=== PATIENT | female | born 1935 | race Caucasian/White ===

== ENCOUNTER 2016-09-05 18:13 | Emergency (ER) | payer MEDICARE ==
[~2016-09-05] VITALS: Ht 165.1 cm; Wt 81.6 kg
[2016-09-05] MEDS ORDERED: POTASSIUM CHLORIDE PO (18:33)
[2016-09-05] MEDS ORDERED: PROCARDIA XL 3030 MG PO (18:34)
[2016-09-05] MEDS ORDERED: MIRALAX17 GM/PACK PO (18:34)
[2016-09-05] MEDS ORDERED: CENTRUM SILVER1 EAC2 PO (18:35)
[2016-09-05] MEDS ORDERED: ASPIRIN ADULT L81 M2 PO (18:35)
[2016-09-05] MEDS ORDERED: THIAMINE 100MG100 MG PO (18:36)
[2016-09-05] MEDS ORDERED: SYNTHROID 0.1M0.1 MG PO (18:37)
[2016-09-05] MEDS ORDERED: FUROSEMIDE 20MG20 MG FT (18:38)
[2016-09-05] MEDS ORDERED: ARIPIPRAZOLE15 MG PO (18:38)
[2016-09-05] MEDS ORDERED: LORAZEPAM0.5 MG/TAB FT (18:39)
[2016-09-05] MEDS ORDERED: LOSARTAN POTASS50 MG PO (18:40)
[2016-09-05] MEDS ORDERED: APRESOLINE 50MG50 MG OR (18:41)
[2016-09-05] MEDS ORDERED: ACETAMINOPHEN500 M3 PO (18:42)
[2016-09-05] MEDS ORDERED: DEPAKOTE 125MG125 MG PO (18:43)
[2016-09-05] MEDS ORDERED: ULTRAM50 MG PO (18:43)
[2016-09-05] MEDS ORDERED: ATIVAN0.5 MG PO (18:44)
[2016-09-05] MEDS ORDERED: PAROXETINE20 MG PO (18:45)
[2016-09-05] MEDS ORDERED: NITROGLYCERIN0.4 M1 SL (18:46)
[2016-09-05] MEDS ORDERED: IPRATROPIUM BROM3 M1 IH (18:47)
[2016-09-05 19:19] LABS: HEMOGLOBIN 11.1 g/dL (12.2-16.2); LYMPH # 2.4 K/mm3 (0.7-4.5); LYMPH % 27.3 % (10-50.0)
[2016-09-05 19:44] LABS: BUN 15 mg/dL (7-18)
--- NOTE | 2016-09-05 19:44 | Emergency Room Report ---
History of Present Illness Time Seen by 1942 Presenting Problem in Triage Pt arrived:Walked Presenting Problem:PT PRESENTS TO ER ALERT AND ORIENTED. PT ALERT AND ORIENTED TO SELF ONLY. [facility] REPORTS THAT PT FELL OUT OF WHEELCHAIR EARLIER TODAY AND THEN COMPLAINED OF CHEST PAIN AND PAIN ALL OVER. 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 N Clinical Suspician of Infection? N Mental Status: 1 - Regular (Normal Baseline) Sepsis Risk:Low Sepsis Risk Have you (or family members/close friends) recently traveled outside the [place]? N If Yes, where/when: Have you had exposure to infectious disease within the past month? N TB? Other? Specify: Source patient, RN notes reviewed, family, EMS, senior living records, old records Exam Limitations clinical condition Comment pt reported to have slipped out of chair at [facility] and now has chest pain and was sent for eval of chest pain - pt has cognitive issues and has inconsistent hx Cardiac Chest Pain Chest pain indicative of cardiac No Timing/Duration this evening Severity moderate ALLERGIES Coded Allergies: No Known Allergies (09/05/16) Home Medications Reported Medications Potassium Chloride (Micro-K 8 Meq. Capsule) 8 MEQ PO DAILY Polyethylene Glycol 3350 (Miralax) 17 GM PO DAILY Nifedipine (Procardia Xl 30MG. Tablet) 30 MG PO DAILY Aspirin 81 MG PO DAILY Folic Acid/Multivit-Min/Lutein (Centrum Silver Chewable Tablet) 1 EACH PO DAILY THIAMINE HCL (Vitamin B-1) 100 MG PO DAILY Levothyroxine Sodium (Synthroid 0.1MG) 0.2 MG PO DAILY Furosemide (Furosemide) 20 MG FT DAILY Aripiprazole 15 MG PO DAILY Lorazepam (Lorazepam 0.5MG) 0.5 MG FT BID Losartan Potassium (Losartan 50MG) 50 MG PO DAILY Hydralazine Hcl (Apresoline 50MG Tab) 25 MG OR TID Acetaminophen (Acetaminophen Extra Strength) 650 MG PO TID Tramadol Hcl (Ultram 50MG) 50 MG PO TID Divalproex Sodium (Depakote Sprinkle) 125 MG PO TID Lorazepam (Ativan 0.5MG) 0.5 MG PO QHS PAROXETINE (Paroxetine HCl) 40 MG PO DAILY Nitroglycerin 0.4 MG SL PRN PRN CHEST PAIN ALBUTEROL-IPRATROPIUM (Iprat-Albut 0.5-3(2.5) MG/3 Ml) 3 ML IH Q6HP PRN BREATHING History Medical History General CAD? No Angina: Yes NC: No Hypertension? No Hyperlipidemia? No CHF? No DVT? No PE? No COPD? No Asthma? No Anemia? No GERD? No Gastric ulcers? No GI Bleed? No Hernia? No Thyroid Problems? No Hypothyroidism? No CVA? No Seizures? No Diabetes? Yes Insulin Dependent: No Insulin Pump: No Home FSBS? No Renal Insuffiency? No End Stage Renal Disease? No UTI? No Stones? No BPH? No GB Disease: No Nephritic Syndrome? No Asplenia? No Hepatitis? No Sickle Cell Disease? No Arthritis? No Migraines? No Cataracts? No Glaucoma? No MRSA? No HIV? No TB? No Anxiety? No Depression? No Cancer? No More? Yes Additional hx: DEMENTIA, ANXIETY, LOW THYROID Immunization Hx DT/Tetanus Unknown Surgical Hx Previous Surgery?Y KNEE (LEFT) Social History Smoking Hx Smoker: Former Smoker Tobacco: Yes Type Cigarettes Alcohol Alcohol: No Drugs none Review of Systems All Other Systems Reviewed and Negative Constitutional denies fever Eyes denies drainage ENT denies: ear pain, epistaxis, throat pain. Respiratory denies cough, denies shortness of breath, denies wheezing Cardiovascular see HPI, chest pain, denies palpitations, denies syncope Gastrointestinal denies abdominal pain, denies diarrhea, denies vomiting Genitourinary denies: dysuria, frequency, hesitancy, hematuria. Musculoskeletal see HPI, denies back pain, joint pain, denies joint swelling, denies neck pain Skin denies rash Psychiatric/Neurological denies headache, denies seizure Physical Exam Vital Signs Vital Signs Date Time Temp Pulse Resp B/P Pulse O2 O2 Flow FiO2 Ox Delivery Rate 09/05 2033 88 20 142/82 96 09/05 1815 98.8 64 16 153/60 99 - WBC >12,000 or <4,000 or 10% bands? 2 or more SIRS Criteria Met? B/P:153/60 MAP:91 Creatinine >2.0? UA output<0.5ml/kg/hr for 2 hrs? Platelet count >100,000? Lactate >2.0mmol/1? INR >1.2 or PTT > than 60 sec? Evidence of Organ Dysfunction? Provider documented clinical suspician of infection? N Sepsis Criteria Count: 0 Sepsis Risk: Low Sepsis Risk General Appearance no apparent distress Eye Exam - bilateral eye PERRL, bilateral eye EOMI Ear, Nose, Throat normal ENT inspection Neck non-tender Respiratory Status No: respiratory distress. Lung Sounds bilateral: lungs clear. Cardiovascular regular rate/rhythm, systolic murmur Peripheral Pulses Pulses normal Yes Gastrointestinal soft Back no vertebral tenderness Extremities pelvis stable, limited range of motion, no clinical changes to pelvis or knees Strength 4 Upper Ext (L), 4 Upper Ext (R), 4 Lower Ext (L), 4 Lower Ext (R) Neurologic alert, client leader II-XII nml as tested, ox 1 Glascow Coma Scale Glascow Coma Scale Response Value EYE response: 4 Spontaneously 4 MOTOR response: 6 OBEYS 6 VERBAL response: 4 Disoriented & Converses 4 Total 14 Reflexes Reflexes normal No Mental status normal mood/affect Skin intact Medical Decision Making LABS/Meds/Orders Pt receiving controlled substance in ED? No Results/Orders Laboratory Tests 09/05/16 1830: Sodium 141, Potassium 3.8, Chloride 107, Carbon Dioxide 28, BUN 15, Creatinine 0.9, Estimated Creat Clear 65, Estimated GFR (MDRD) 60, Glucose 144 H, Calcium 10.2 H, Total Bilirubin 0.3, AST 19, ALT 23, Alkaline Phosphatase 79, Creatine Kinase 37, CK-MB (CK-2) Rel Index 3.5, CK and CKMB Interp 1.3, Troponin I < 0.02 , Total Protein 6.7, Albumin 3.0 L, Globulin 3.7 H, Albumin/Globulin Ratio 0.8 L, WBC 8.9, RBC 3.73 L, Hgb 11.1 L, Hct 34.4 L, MCV 92.2, RDW 14.6, Plt Count 290, MPV 6.7 L, Gran % 65.4, Gran # 5.8, Lymphocytes % 27.3, Monocytes % 4.5, Eosinophils % 2.4, Basophils % 0.3, Lymphocytes # 2.4, Monocytes # 0.4, Eosinophils # 0.2, Basophils # 0.0, PUBS MCHC 32.4, MCH 29.8 Current Medication Orders Sig/Tyrell Start time Last Medication Dose Route Stop Time Status Admin Sodium Chloride 10 ML PRN PRN 09/05 1900 AC IV 09/06 184 Orders Procedure Date/time Status KNEE-3 VIEWS-LT 09/05 185 Active ELECTROCARDIOGRAM REQUEST 09/06 1847 Active CHEST-PORTABLE 09/06 1847 Active IV SALINE LOCK 09/06 1847 Active MOLDER MEAT 09/06 1847 Active CBC WITH AUTO DIFF 09/06 1847 Complete CARDIAC ENZYMES 09/06 1847 Complete CHEM 12 PROFILE 09/06 1847 Complete CM/EKG CM/domestic 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 ST/Twave chgs XRAY/CT/US XRAY/CT/US XRAY chest, knee XR interpretation by reviewed by me Xray Results no fracture seen Departure Departure Time of Disposition 2045 Disposition DC Home or Self Care(routine) Clinical Impression Primary Impression: Chest pain Qualifiers: Chest pain type: unspecified Qualified Code: R07.9 - Chest pain, unspecified Condition STABLE Patient Instructions DI for Atypical Chest Pain Additional Instructions resume meds Discharge Counseling Counseled pt/family regarding diagnosis, test results, follow up needs ED Critical Care Critical Care No at 2048
--- NOTE | 2016-09-05 19:44 | Emergency Room Report ---
History of Present Illness Time Seen by 1942 Presenting Problem in Triage Pt arrived:Walked Presenting Problem:PT PRESENTS TO ER ALERT AND ORIENTED. PT ALERT AND ORIENTED TO SELF ONLY. [facility] REPORTS THAT PT FELL OUT OF WHEELCHAIR EARLIER TODAY AND THEN COMPLAINED OF CHEST PAIN AND PAIN ALL OVER. 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 N Clinical Suspician of Infection? N Mental Status: 1 - Regular (Normal Baseline) Sepsis Risk:Low Sepsis Risk Have you (or family members/close friends) recently traveled outside the [place]? N If Yes, where/when: Have you had exposure to infectious disease within the past month? N TB? Other? Specify: Source patient, RN notes reviewed, family, EMS, [facility] records, old records Exam Limitations clinical condition Comment pt reported to have slipped out of chair at [facility] and now has chest pain and was sent for eval of chest pain - pt has cognitive issues and has inconsistent hx Cardiac Chest Pain Chest pain indicative of cardiac No Timing/Duration this evening Severity moderate ALLERGIES Coded Allergies: No Known Allergies (09/05/16) Home Medications Reported Medications Potassium Chloride (Micro-K 8 Meq. Capsule) 8 MEQ PO DAILY Polyethylene Glycol 3350 (Miralax) 17 GM PO DAILY Nifedipine (Procardia Xl 30MG. Tablet) 30 MG PO DAILY Aspirin 81 MG PO DAILY Folic Acid/Multivit-Min/Lutein (Centrum Silver Chewable Tablet) 1 EACH PO DAILY THIAMINE HCL (Vitamin B-1) 100 MG PO DAILY Levothyroxine Sodium (Synthroid 0.1MG) 0.2 MG PO DAILY Furosemide (Furosemide) 20 MG FT DAILY Aripiprazole 15 MG PO DAILY Lorazepam (Lorazepam 0.5MG) 0.5 MG FT BID Losartan Potassium (Losartan 50MG) 50 MG PO DAILY Hydralazine Hcl (Apresoline 50MG Tab) 25 MG OR TID Acetaminophen (Acetaminophen Extra Strength) 650 MG PO TID Tramadol Hcl (Ultram 50MG) 50 MG PO TID Divalproex Sodium (Depakote Sprinkle) 125 MG PO TID Lorazepam (Ativan 0.5MG) 0.5 MG PO QHS PAROXETINE (Paroxetine HCl) 40 MG PO DAILY Nitroglycerin 0.4 MG SL PRN PRN CHEST PAIN ALBUTEROL-IPRATROPIUM (Iprat-Albut 0.5-3(2.5) MG/3 Ml) 3 ML IH Q6HP PRN BREATHING History Medical History General CAD? No Angina: Yes AK: No Hypertension? No Hyperlipidemia? No CHF? No DVT? No PE? No COPD? No Asthma? No Anemia? No GERD? No Gastric ulcers? No GI Bleed? No Hernia? No Thyroid Problems? No Hypothyroidism? No CVA? No Seizures? No Diabetes? Yes Insulin Dependent: No Insulin Pump: No Home FSBS? No Renal Insuffiency? No End Stage Renal Disease? No UTI? No Stones? No BPH? No GB Disease: No Nephritic Syndrome? No Asplenia? No Hepatitis? No Sickle Cell Disease? No Arthritis? No Migraines? No Cataracts? No Glaucoma? No MRSA? No HIV? No TB? No Anxiety? No Depression? No Cancer? No More? Yes Additional hx: DEMENTIA, ANXIETY, LOW THYROID Immunization Hx DT/Tetanus Unknown Surgical Hx Previous Surgery?Y KNEE (LEFT) Social History Smoking Hx Smoker: Former Smoker Tobacco: Yes Type Cigarettes Alcohol Alcohol: No Drugs none Review of Systems All Other Systems Reviewed and Negative Constitutional denies fever Eyes denies drainage ENT denies: ear pain, epistaxis, throat pain. Respiratory denies cough, denies shortness of breath, denies wheezing Cardiovascular see HPI, chest pain, denies palpitations, denies syncope Gastrointestinal denies abdominal pain, denies diarrhea, denies vomiting Genitourinary denies: dysuria, frequency, hesitancy, hematuria. Musculoskeletal see HPI, denies back pain, joint pain, denies joint swelling, denies neck pain Skin denies rash Psychiatric/Neurological denies headache, denies seizure Physical Exam Vital Signs Vital Signs Date Time Temp Pulse Resp B/P Pulse O2 O2 Flow FiO2 Ox Delivery Rate 09/05 2033 88 20 142/82 96 09/05 1815 98.8 64 16 153/60 99 - WBC >12,000 or <4,000 or 10% bands? 2 or more SIRS Criteria Met? B/P:153/60 MAP:91 Creatinine >2.0? UA output<0.5ml/kg/hr for 2 hrs? Platelet count >100,000? Lactate >2.0mmol/1? INR >1.2 or PTT > than 60 sec? Evidence of Organ Dysfunction? Provider documented clinical suspician of infection? N Sepsis Criteria Count: 0 Sepsis Risk: Low Sepsis Risk General Appearance no apparent distress Eye Exam - bilateral eye PERRL, bilateral eye EOMI Ear, Nose, Throat normal ENT inspection Neck non-tender Respiratory Status No: respiratory distress. Lung Sounds bilateral: lungs clear. Cardiovascular regular rate/rhythm, systolic murmur Peripheral Pulses Pulses normal Yes Gastrointestinal soft Back no vertebral tenderness Extremities pelvis stable, limited range of motion, no clinical changes to pelvis or knees Strength 4 Upper Ext (L), 4 Upper Ext (R), 4 Lower Ext (L), 4 Lower Ext (R) Neurologic alert, packer insulation II-XII nml as tested, ox 1 Glascow Coma Scale Glascow Coma Scale Response Value EYE response: 4 Spontaneously 4 MOTOR response: 6 OBEYS 6 VERBAL response: 4 Disoriented & Converses 4 Total 14 Reflexes Reflexes normal No Mental status normal mood/affect Skin intact Medical Decision Making LABS/Meds/Orders Pt receiving controlled substance in ED? No Results/Orders Laboratory Tests 09/05/16 1830: Sodium 141, Potassium 3.8, Chloride 107, Carbon Dioxide 28, BUN 15, Creatinine 0.9, Estimated Creat Clear 65, Estimated GFR (MDRD) 60, Glucose 144 H, Calcium 10.2 H, Total Bilirubin 0.3, AST 19, ALT 23, Alkaline Phosphatase 79, Creatine Kinase 37, CK-MB (CK-2) Rel Index 3.5, CK and CKMB Interp 1.3, Troponin I < 0.02 , Total Protein 6.7, Albumin 3.0 L, Globulin 3.7 H, Albumin/Globulin Ratio 0.8 L, WBC 8.9, RBC 3.73 L, Hgb 11.1 L, Hct 34.4 L, MCV 92.2, RDW 14.6, Plt Count 290, MPV 6.7 L, Gran % 65.4, Gran # 5.8, Lymphocytes % 27.3, Monocytes % 4.5, Eosinophils % 2.4, Basophils % 0.3, Lymphocytes # 2.4, Monocytes # 0.4, Eosinophils # 0.2, Basophils # 0.0, PUBS MCHC 32.4, MCH 29.8 Current Medication Orders Sig/Tyrell Start time Last Medication Dose Route Stop Time Status Admin Sodium Chloride 10 ML PRN PRN 09/05 1900 AC IV 09/06 184 Orders Procedure Date/time Status KNEE-3 VIEWS-LT 09/05 185 Active ELECTROCARDIOGRAM REQUEST 09/06 1847 Active CHEST-PORTABLE 09/06 1847 Active IV SALINE LOCK 09/06 1847 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 ST/Twave chgs XRAY/CT/US XRAY/CT/US XRAY chest, knee XR interpretation by reviewed by me Xray Results no fracture seen Departure Departure Time of Disposition 2045 Disposition DC Home or Self Care(routine) Clinical Impression Primary Impression: Chest pain Qualifiers: Chest pain type: unspecified Qualified Code: R07.9 - Chest pain, unspecified Condition STABLE Patient Instructions DI for Atypical Chest Pain Additional Instructions resume meds Discharge Counseling Counseled pt/family regarding diagnosis, test results, follow up needs ED Critical Care Critical Care No at 2048
[2016-09-05 19:46] LABS: GFR (ESTIMATED) 60 ML/MIN (59-)
[2016-09-05 21:00] VITALS: BP 118/71
--- NOTE | 2016-09-05 22:21 | RADIOLOGY REPORT PS360 ---
KNEE-3 VIEWS-LT ORDERING PHYSICIAN : Clement Alfredo MD PATIENT AGE: 81 years GENDER: Female INDICATION: PAIN AFTER A FALL EARLIER TODAY Pain after fall earlier today TECHNIQUE: 3 view left knee COMPARISON: No previous studies. FINDINGS Severe arthritic changes needle compartment with marked joint space narrowing & sclerosis with basically [id number] appearance at medial compartment. 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 11 mm wide 5 mm deep diffuse sclerosis surrounding this area. Marginal osteophytes most evident about the medial compartment but also generous about the patellofemoral joint and seen about lateral compartment Prominent joint effusion suprapatella bursa. 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
--- NOTE | 2016-09-05 22:21 | RADIOLOGY REPORT PS360 ---
KNEE-3 VIEWS-LT ORDERING PHYSICIAN : Clement Alfredo MD PATIENT AGE: 81 years GENDER: Female INDICATION: PAIN AFTER A FALL EARLIER TODAY Pain after fall earlier today TECHNIQUE: 3 view left knee COMPARISON: No previous studies. FINDINGS Severe arthritic changes needle compartment with marked joint space narrowing & sclerosis with basically [id number] appearance at medial compartment. 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 11 mm wide 5 mm deep diffuse sclerosis surrounding this area. Marginal osteophytes most evident about the medial compartment but also generous about the patellofemoral joint and seen about lateral compartment Prominent joint effusion suprapatella bursa. 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
--- NOTE | 2016-09-06 04:57 | RADIOLOGY REPORT PS360 ---
CHEST-PORTABLE HISTORY: CHEST PAIN EARLIER TODAY ORDERING PHYSICIAN: Clement Alfredo MD PATIENT AGE: 81 years COMPARISON: None available FINDINGS: The cardiomediastinal silhouette and pulmonary vascularity are within normal limits. There is slight increased markings in the right mid to lower lung zone nonspecific. The remaining lungs are clear.. No acute bony abnormalities. IMPRESSION: Slight increased markings right mid to lower lung zone which could be due to area of atelectasis or infiltrate otherwise negative
== END 2016-09-05 21:00 | disposition home or self-care (01) ==
LOC: ER 18:13
PROVIDERS: Emergency Medicine
DX: R07.9 Chest pain, unspecified (principal); E11.9 Type 2 diabetes mellitus without complications; Z87.891 Personal history of nicotine dependence